=== PATIENT | male | born 1965 | race Caucasian/White ===

== ENCOUNTER 2022-12-08 16:32 | Emergency (ER) | payer BC, OTHER ==
[~2022-12-08] VITALS: Ht 165.1 cm; Wt 81.6 kg
[2022-12-08] MEDS ORDERED: IBUP-1955 PO (18:03)
[2022-12-08 18:04] VITALS: BP 150/82; O2SAT 99
== END 2022-12-08 18:07 | disposition home or self-care (01) ==
LOC: ER 16:43
DX: S63.92XA Sprain of unspecified part of left wrist and hand, initial encounter (principal); F17.210 Nicotine dependence, cigarettes, uncomplicated; X58.XXXA Exposure to other specified factors, initial encounter; Y93.89 Activity, other specified; Y92.89 Other specified places as the place of occurrence of the external cause; Y99.8 Other external cause status
CPT/HCPCS: 73130; A4663

== ENCOUNTER 2023-11-08 12:10 | Emergency (ER) | payer BC, OTHER ==
[~2023-11-08] VITALS: Ht 162.6 cm; Wt 79.4 kg
[~2023-11-08 12:10] MED LIST: IBUP-1955 PO
[2023-11-08] MEDS ORDERED: diphenhydrAMINE 50 MG/1 ML VIAL ONE (12:45)
[2023-11-08] MEDS ORDERED: METOCLOPRAMIDE HCL 10 MG/2 ML VIAL ONE (12:45)
[2023-11-08] MEDS ORDERED: KETOROLAC TROMETHAMINE 30 MG INJ ONE (12:45)
[2023-11-08] MEDS: diphenhydrAMINE 50 MG/1 ML VIAL IV ONE (12:51)
[2023-11-08] MEDS: METOCLOPRAMIDE HCL 10 MG/2 ML VIAL IV ONE (12:51)
[2023-11-08] MEDS: IV NS 1000 ML 1,000 ML IV ONE (12:52)
[2023-11-08] MEDS: KETOROLAC TROMETHAMINE 30 MG INJ IVP ONE (12:52)
[2023-11-08] MEDS ORDERED: MAGNESIUM SULFATE/D5W 200 ML ONE (14:04)
[2023-11-08] MEDS: MAGNESIUM SULFATE/D5W 100 ML IV SCH (14:07)
[2023-11-08] MEDS ORDERED: NAPR-1164 PO (15:37)
[2023-11-08] MEDS ORDERED: METO-295 PO (15:37)
[2023-11-08] MEDS ORDERED: DIPH25CA83 PO (15:37)
[2023-11-08 15:45] VITALS: BP 130/76; TEMP 98.3; O2SAT 98
== END 2023-11-08 16:18 | disposition home or self-care (01) ==
LOC: ER 12:10
DX: G43.909 Migraine, unspecified, not intractable, without status migrainosus (principal); E78.5 Hyperlipidemia, unspecified; F17.200 Nicotine dependence, unspecified, uncomplicated; Z79.1 Long term (current) use of non-steroidal anti-inflammatories (NSAID); Z79.899 Other long term (current) drug therapy
CPT/HCPCS: A4606; A4663; J1200; J1885; J2765; J3475; J7040